=== PATIENT | female | born 1990 | race African-American/Black ===

== ENCOUNTER 2025-03-14 13:00 | Emergency (ER) | payer MEDICAID ==
[~2025-03-14] VITALS: Ht 167.6 cm; Wt 60.0 kg
[~2025-03-14 13:00] MED LIST: IBUP-2028 MT; POLY17PO3 PO; TOPUD PO
[2025-03-14 13:09] VITALS: O2SAT 99
[2025-03-14 14:41] LABS: INFLUENZA TYPE A Presumptive Negative (Pres. Neg.); INFLUENZA TYPE B Presumptive Negative (Pres. Neg.)
[2025-03-14] MEDS ORDERED: FLUC100T42 MT (14:44)
[2025-03-14] MEDS ORDERED: CLOT10TR2 MT (14:44)
[2025-03-14 14:53] VITALS: BP 110/65; PULSE 74; RESP 15; TEMP 36.8; O2SAT 99
== END 2025-03-14 14:54 | disposition home or self-care (01) ==
LOC: ER 13:00
DX: B37.0 Candidal stomatitis (principal); Z79.899 Other long term (current) drug therapy; Z20.822 Contact with and (suspected) exposure to COVID-19
CPT/HCPCS: 87070; 87426; 87430; 87804; 99283